=== PATIENT | male | born 1975 | race Caucasian/White ===

== ENCOUNTER → 2016-12-27 | Outpatient (CLI) | payer OTHER ==
--- NOTE | ~2016-12-27 | NDGEN ---
PATIENT'S NAME: FERNANDO COTO [facility] AGE: 41 Y [address] ROOM: [place] [id number] LOCATION: [facility] ADMIT DATE: 12/27/2016 Neurodiagnostics DISCHARGE DATE: FAMILY PHYSICIAN: Alycia Tristan ATTENDING PHYSICIAN: KWADWO MALIN DATE OF PROCEDURE: 12/27/2016 PROCEDURE PERFORMED: Nerve conduction of bilateral upper extremities and EMG of the right upper extremity. The patient was seen on this study on 12/27/2016. INDICATIONS/DESCRIPTION: This is a 41-year-old male patient, who states that for about nearly a year, he has pain in the region of the medial malleolus of the right arm possibly consistent with a golfer's elbow. However, he did have a cortisone shot back in May and it did not help him with some focal pain there. He has noticeable weakness on pronation as well as supination of the forearm. However, there is normal power into the intrinsic muscles of the hand, and wrist extension and flexion as well as finger extension and flexion are all normal. His upper arm power is completely normal at the biceps, triceps, and deltoids. There was normal reflexes at the biceps and the triceps. On a secondary issue, he does have some pain that is up in his right neck region and he has an increased spasming of the trapezius crest muscles, but it is unrelated to the issue at the medial portion of the elbow. Nerve conduction studies were performed in the left and right median, ulnar, motor, and sensory nerves. There was completely normal motor onset latencies, amplitudes, and nerve conduction velocities seen in the median and ulnar nerves. On sensory nerve conduction studies, there was also normal nerve conduction velocities as well as peak onset latencies and normal amplitudes. F-wave studies were completely normal. Needle EMG was done in the right upper extremity. It was placed into the biceps, triceps, and the deltoid muscles. There was no evidence of any abnormal spontaneous electrical activity such as positive sharp waves and fibrillation potentials. On activation of these muscles, there was full recruitment of motor unit action potentials with normal durations and sizes. The needle was also placed into the pronator teres muscle, a C6-C7 muscle, and there was normal motor units seen, however, there was decreased activation of the motor units, but not decreased recruitment. Decreased activation was seen with weakness, but not with any focal neuropathy. PATIENT'S NAME: FERNANDO COTO [facility] AGE: 41 Y [address] ROOM: [place], [place] [address] LOCATION: [facility] ADMIT DATE: 12/27/2016 Neurodiagnostics DISCHARGE DATE: FAMILY PHYSICIAN: Alycia Tristan ATTENDING PHYSICIAN: KWADWO MALIN IMPRESSION: The nerve conduction studies of the bilateral upper extremities were completely within normal limits. So there was no evidence to support a focal mononeuropathy of the right upper extremity. Furthermore, needle EMG along with the patient's physical exam does not support any evidence of a cervical radiculopathy. The patient likely has the golfer's elbow that is relegated to some pain, but I cannot necessarily explain his weakness on pronation and supination of the elbow from a neurological perspective of a nerve compression or other neurological issue proximal to this of the cervical roots. MD DHAVAL ALEX/kika /[id number] dtt: 01/28/17 1532 , LAUREN KRUGER dtd: 12/27/16 1733
== END | disposition disaster alternative care site (69) ==
LOC: GNEU 12-09 15:00
DX: G56.90 Unspecified mononeuropathy of unspecified upper limb (principal)